=== PATIENT | female | born 1990 | race African-American/Black ===

== ENCOUNTER 2022-05-30 14:19 | Emergency (ER) | payer SELFPAY ==
[~2022-05-30] VITALS: Ht 170.2 cm; Wt 72.6 kg
[2022-05-30] MEDS ORDERED: SODIUM CHLORIDE 0.9% 1000ML 1,000 ML IV STA (14:51)
[2022-05-30] MEDS ORDERED: FAMOTIDINE 20 MG/2 ML VIAL IV STA (14:52)
[2022-05-30] MEDS ORDERED: DICYCLOMINE HCL 20 MG/2 ML VIAL IM ONE ×2 (15:00→15:22)
[2022-05-30] MEDS ORDERED: PROMETHAZINE HCL (IM) 25 MG/ML VIAL IM ONE ×2 (15:00→15:22)
[2022-05-30] MEDS ORDERED: IOPAMIDOL 370 MG/ML 100 ML INFUS..BTL INJ ONE (15:04)
[2022-05-30] MEDS ORDERED: Morphine 4mg INJECTION 4 MG/ML INJ ONE (15:23)
[2022-05-30] MEDS ORDERED: SODIUM CHLORIDE 0.9% 1000ML 1,000 ML ONE (15:23)
[2022-05-30] MEDS ORDERED: Morphine 4mg INJECTION 4 MG/ML INJ IV STA (15:53)
[2022-05-30] MEDS ORDERED: METRONIDAZOLE500 MG PO (16:04)
[2022-05-30] MEDS ORDERED: ACETAMINOPHEN-1 EAC4 PO (16:04)
[2022-05-30] MEDS ORDERED: PROMETHAZINE HC25 M1 PO (16:04)
[2022-05-30] MEDS ORDERED: PREDNISONE20 MG PO (16:04)
[2022-05-30 16:22] VITALS: BP 178/98
== END 2022-05-30 16:24 | disposition home or self-care (01) ==
LOC: FSED 14:25
DX: R10.9 Unspecified abdominal pain (principal); R11.2 Nausea with vomiting, unspecified; R19.7 Diarrhea, unspecified; Z87.19 Personal history of other diseases of the digestive system
CPT/HCPCS: 74176; 80048; 80076; 85025; 96374; 96375; 96376; 99283; J0500; J2270; J2550; J7030; Q9967

== ENCOUNTER 2022-06-15 13:10 | Emergency (ER) | payer SELFPAY ==
[~2022-06-15] VITALS: Ht 170.2 cm; Wt 72.6 kg
[~2022-06-15 13:10] MED LIST: ACETAMINOPHEN-1 EAC4 PO; METRONIDAZOLE500 MG PO; PREDNISONE20 MG PO; PROMETHAZINE HC25 M1 PO
[2022-06-15] MEDS ORDERED: SODIUM CHLORIDE 0.9% 1000ML 1,000 ML IV STA (13:14)
[2022-06-15] MEDS ORDERED: ACETAMINOPHEN 325 MG TAB PO ONE (13:15)
[2022-06-15] MEDS ORDERED: FAMOTIDINE 20 MG/2 ML VIAL IV ONE ×2 (13:15→14:12)
[2022-06-15] MEDS ORDERED: SODIUM CHLORIDE 0.9% 1000ML 1,000 ML ONE (14:12)
[2022-06-15] MEDS ORDERED: ACETAMINOPHEN 325 MG TAB ONE (14:12)
[2022-06-15] MEDS ORDERED: PROMETHAZINE 25MG/ NS 50ML (IV) IV ONE (14:15)
[2022-06-15] MEDS ORDERED: PROMETHAZINE HCL (IM) 25 MG/ML VIAL IM ONE (14:28)
[2022-06-15] MEDS ORDERED: CEFTRIAXONE 1 GM VIAL IV ONE (14:45)
[2022-06-15] MEDS ORDERED: CEFTRIAXONE 2 GM in SODIUM CHLORIDE 0.9% 100 ML IV ONE (15:00)
[2022-06-15] MEDS ORDERED: SODIUM CHLORIDE 0.9% 100 ML ONE (15:09)
[2022-06-15] MEDS ORDERED: CEFTRIAXONE 1 GM VIAL ONE (15:09)
[2022-06-15] MEDS ORDERED: PROMETHAZINE HC25 M1 PO (15:24)
[2022-06-15] MEDS ORDERED: CEFDINIR300 MG PO (15:24)
[2022-06-15] MEDS ORDERED: PHENERGAN SUPP25 MG RC (15:24)
== END 2022-06-15 15:37 | disposition home or self-care (01) ==
LOC: FSED 13:13
DX: R10.30 Lower abdominal pain, unspecified (principal); K59.00 Constipation, unspecified; K50.90 Crohn's disease, unspecified, without complications; N39.0 Urinary tract infection, site not specified; R11.2 Nausea with vomiting, unspecified; D64.9 Anemia, unspecified
CPT/HCPCS: 74176; 80048; 80076; 81003; 85025; 96374; 99283; J0696 ×2; J2550; J7030; J7050

== ENCOUNTER 2022-06-16 03:20 | Emergency (ER) | payer SELFPAY ==
[~2022-06-16] VITALS: Ht 170.2 cm; Wt 72.6 kg
[~2022-06-16 03:20] MED LIST changes: +CEFDINIR300 MG PO; +PHENERGAN SUPP25 MG RC
[2022-06-16] MEDS ORDERED: PROMETHAZINE HCL (IM) 25 MG/ML VIAL IM ONE ×2 (03:45→03:56)
[2022-06-16 03:51] VITALS: BP 119/58
== END 2022-06-16 03:51 | disposition home or self-care (01) ==
LOC: FSED 03:24
DX: R11.2 Nausea with vomiting, unspecified (principal); N39.0 Urinary tract infection, site not specified; K50.90 Crohn's disease, unspecified, without complications; D64.9 Anemia, unspecified; F17.210 Nicotine dependence, cigarettes, uncomplicated
CPT/HCPCS: 96372; 99282; J2550

== ENCOUNTER 2022-06-16 20:17 | Emergency (ER) | payer SELFPAY ==
[~2022-06-16] VITALS: Ht 170.2 cm; Wt 72.6 kg
== END 2022-06-16 20:50 | disposition left against medical advice (07) ==
LOC: FSED 20:21
DX: R10.9 Unspecified abdominal pain (principal)

== ENCOUNTER 2022-10-08 10:59 | Emergency (ER) | payer SELFPAY ==
[~2022-10-08] VITALS: Ht 170.2 cm; Wt 85.7 kg
[2022-10-08] MEDS ORDERED: SODIUM CHLORIDE 0.9% 1000ML 1,000 ML IV SCH (12:15)
[2022-10-08] MEDS ORDERED: FAMOTIDINE 20 MG/2 ML VIAL IV ONE ×2 (12:30→12:37)
[2022-10-08] MEDS ORDERED: METHYLPREDNISOLONE SOD SUCC 125 MG/2ML VIAL ONE (12:37)
[2022-10-08] MEDS ORDERED: PROMETHAZINE HCL (IM) 25 MG/ML VIAL IM ONE (12:37)
[2022-10-08] MEDS ORDERED: SODIUM CHLORIDE 0.9% 1000ML 1,000 ML ONE (12:37)
[2022-10-08] MEDS ORDERED: METHYLPREDNISOLONE SOD SUCC 125 MG/2ML VIAL IV ONE (13:00)
[2022-10-08] MEDS ORDERED: PROMETHAZINE 25MG/ NS 50ML (IV) IV ONE (13:00)
[2022-10-08] MEDS ORDERED: PROMETHAZINE HC25 M1 PO (13:55)
[2022-10-08] MEDS ORDERED: PREDNISONE20 MG PO (13:55)
[2022-10-08] MEDS ORDERED: OMEPRAZOLE20 M2 PO (13:55)
[2022-10-08] MEDS ORDERED: Morphine 2mg Syringe 2 MG/ML SYR IV ONE (14:00)
[2022-10-08] MEDS ORDERED: Morphine 4mg INJECTION 4 MG/ML INJ ONE (14:26)
[2022-10-08 14:59] VITALS: BP 99/62
== END 2022-10-08 15:03 | disposition home or self-care (01) ==
LOC: FSED 11:02
DX: R10.9 Unspecified abdominal pain (principal); K50.90 Crohn's disease, unspecified, without complications; R11.0 Nausea; D64.9 Anemia, unspecified
CPT/HCPCS: 80048; 80076; 81003; 85025; 96374; 96375; 96376; 99283; J2270; J2550; J2930; J7030

== ENCOUNTER 2022-10-10 17:59 | Emergency (ER) | payer SELFPAY ==
[~2022-10-10] VITALS: Ht 170.2 cm; Wt 82.8 kg
[~2022-10-10 17:59] MED LIST changes: +OMEPRAZOLE20 M2 PO
[2022-10-10] MEDS ORDERED: LATUDA40 MG (18:18)
[2022-10-10] MEDS ORDERED: LUNESTA2 MG (18:18)
[2022-10-10] MEDS ORDERED: PROMETHAZINE HCL (IM) 25 MG/ML VIAL IM STA (19:11)
[2022-10-10] MEDS ORDERED: FAMOTIDINE 20 MG TAB PO STA (19:11)
[2022-10-10] MEDS ORDERED: FAMOTIDINE 20 MG TAB ONE (19:27)
[2022-10-10] MEDS ORDERED: CIPRO500 MG PO (19:32)
[2022-10-10] MEDS ORDERED: ACETAMINOPHEN-1 EAC4 PO (19:32)
[2022-10-10] MEDS ORDERED: METRONIDAZOLE500 MG PO (19:32)
[2022-10-10] MEDS ORDERED: Morphine 4mg INJECTION 4 MG/ML INJ IM STA (19:36)
[2022-10-10] MEDS ORDERED: Morphine 4mg INJECTION 4 MG/ML INJ ONE (19:45)
== END 2022-10-10 20:00 | disposition home or self-care (01) ==
LOC: FSED 18:09
DX: R10.12 Left upper quadrant pain (principal); K50.90 Crohn's disease, unspecified, without complications; R11.0 Nausea; D64.9 Anemia, unspecified; F41.9 Anxiety disorder, unspecified
CPT/HCPCS: 74176; 99283; J2270; J2550

== ENCOUNTER 2022-11-09 14:12 | Emergency (ER) | payer SELFPAY ==
[~2022-11-09] VITALS: Ht 170.2 cm; Wt 84.6 kg
[~2022-11-09 14:12] MED LIST changes: +CIPRO500 MG PO; +LATUDA40 MG; +LUNESTA2 MG
[2022-11-09] MEDS ORDERED: AMOX TR-K CLV1 EAC2 (14:42)
[2022-11-09] MEDS ORDERED: PROMETHAZINE 25MG/ NS 50ML (IV) IV ONE (16:00)
[2022-11-09] MEDS ORDERED: Morphine 4mg INJECTION 4 MG/ML INJ IV ONE (16:00)
[2022-11-09] MEDS ORDERED: SODIUM CHLORIDE 0.9% 1000ML 1,000 ML IV SCH (16:00)
[2022-11-09] MEDS ORDERED: PROMETHAZINE HCL (IM) 25 MG/ML VIAL IM ONE (16:36)
[2022-11-09] MEDS ORDERED: Morphine 4mg INJECTION 4 MG/ML INJ ONE (16:36)
[2022-11-09] MEDS ORDERED: SODIUM CHLORIDE 0.9% 1000ML 1,000 ML ONE (16:36)
[2022-11-09] MEDS ORDERED: CEFTRIAXONE 1 GM VIAL ONE (17:45)
[2022-11-09 18:58] VITALS: BP 123/71
[2022-11-09] MEDS ORDERED: FUROSEMIDE INJ 10 MG/ML 4 ML VIAL IV ONE (19:15)
== END 2022-11-09 19:01 | disposition home or self-care (01) ==
LOC: FSED 14:31
DX: R11.2 Nausea with vomiting, unspecified (principal); N39.0 Urinary tract infection, site not specified; R10.12 Left upper quadrant pain; D64.9 Anemia, unspecified; K21.9 Gastro-esophageal reflux disease without esophagitis; F41.9 Anxiety disorder, unspecified; F32.A Depression, unspecified; Z87.19 Personal history of other diseases of the digestive system
CPT/HCPCS: 80048; 80076; 81003; 81025; 85025; 87086; 96374; 99283; J0696; J2270; J2550; J7030